=== PATIENT | male | born 1960 | race Asian ===

== ENCOUNTER 2024-01-17 15:20 | Inpatient (IN) | payer OTHER ==
[2024-01-17 15:41] VITALS: BMI 26.2
[2024-01-17] MEDS ORDERED: ATORVASTATIN CA 80 MG TABLET (FP) ONE ×2 (16:54→21:27)
[2024-01-17] MEDS ORDERED: ACETAMINOPHEN INJECTION 100 ML IVPB ONE ×2 (16:54→22:18)
[2024-01-17] MEDS: ACETAMINOPHEN 1000 MG/100 ML BAG IVPB ONE ×2 (17:16→22:25)
[2024-01-17] MEDS: ATORVASTATIN CA 80 MG TABLET (FP) PO ONE (17:17)
[2024-01-17] MEDS ORDERED: METOCLOPRAMIDE HCL INJECTION 10 MG/2 ML VIAL ONE (17:43)
[2024-01-17] MEDS: METOCLOPRAMIDE HCL INJECTION 10 MG/2 ML VIAL IVPUSH ONE (17:47)
[2024-01-17 18:03] LABS: BASO % 0.7 % (0-2.0); EOS % 1.6 % (0-4.5); HEMATOCRIT 37.4 % (35.4-49); HEMOGLOBIN 12.2 GM/dL (11.7-16.9); LYMPH % 26.8 % (8-40); MCH 27.1 pg (25.7-33.7); MCHC 32.6 g/dl (32.0-35.9); MEAN CELL VOLUME 83.1 fl (80-96); MEAN PLT VOLUME 9.4 fl (7.5-11.1); MONO % 9.4 % (3.8-10.2); NEUT % 61.5 % (42.8-82.8); PLATELET COUNT 172 10^3/uL (134-434); WHITE BLOOD COUNT 7.3 K/mm3 (4.0-10.0)
[2024-01-17 18:26] LABS: ACTIVATED PTT 29.5 SECONDS (25.2-36.5); INR 1.14 (0.83-1.09); PROTHROMBIN TIME (PATIENT) 13.1 SEC (9.7-13.0)
[2024-01-17 18:35] LABS: CHOLESTEROL 139 mg/dL (50-200)
[2024-01-17 18:36] LABS: LDL CHOLESTEROL (ONLY SJRH) 69 mg/dL (5-100)
[2024-01-17 18:38] LABS: HDL CHOLESTEROL 27 mg/dL (40-60)
[2024-01-17 18:43] LABS: BLOOD UREA NITROGEN 17.5 mg/dL (7-18); CALCIUM 9.2 mg/dL (8.5-10.1)
[2024-01-17 18:44] LABS: ALBUMIN 3.6 g/dl (3.4-5.0)
[2024-01-17 18:47] LABS: CREATININE 1.8 mg/dL (0.55-1.3)
[2024-01-17 18:48] LABS: BILIRUBIN,TOTAL 0.4 mg/dL (0.2-1)
[2024-01-17 18:49] LABS: TOT PROT 7.1 g/dl (6.4-8.2)
[2024-01-17] MEDS ORDERED: ACETAMINOPHEN 325 MG TABLET (FP) PO PRN (21:56)
[2024-01-17] MEDS ORDERED: MECLIZINE HCL 25 MG TABLET (FP) PO PRN (21:57)
[2024-01-17] MEDS ORDERED: ATORVASTATIN CA 80 MG TABLET (FP) PO SCH (22:00)
[2024-01-17] MEDS: ASPIRIN 81 MG CHEWABLE TABLETS PO SCH (22:16)
[2024-01-17] MEDS ORDERED: ASPIRIN 325 MG TABLET ONE (22:18)
[2024-01-17] MEDS: ASPIRIN 325 MG TABLET PO ONE (22:26)
[2024-01-18] MEDS ORDERED: NICOTINE POLACRILEX 4 MG GUM BUC PRN (06:52)
[2024-01-18] MEDS ORDERED: PANTOPRAZOLE 40 MG TABLET PO SCH ×3 (07:00→10:00)
[2024-01-18] MEDS ORDERED: PANTOPRAZOLE 40 MG TABLET PO ONE (07:25)
[2024-01-18] MEDS: PANTOPRAZOLE 40 MG TABLET PO SCH (07:26)
[2024-01-18 07:29] LABS: BASO % 0.7 % (0-2.0); EOS % 2.3 % (0-4.5); HEMOGLOBIN 11.8 GM/dL (11.7-16.9); LYMPH % 27.7 % (8-40); MCH 26.8 pg (25.7-33.7); MCHC 32.8 g/dl (32.0-35.9); MEAN CELL VOLUME 81.6 fl (80-96); MEAN PLT VOLUME 9.1 fl (7.5-11.1); MONO % 7.8 % (3.8-10.2); NEUT % 61.5 % (42.8-82.8); PLATELET COUNT 165 10^3/uL (134-434); RBC 4.41 M/mm3 (4.00-5.60); RDW 15.1 % (11.9-15.9); WHITE BLOOD COUNT 6.8 K/mm3 (4.0-10.0)
[2024-01-18 07:42] LABS: POTASSIUM 3.7 mmol/L (3.5-5.1)
[2024-01-18 07:44] LABS: ALBUMIN 3.4 g/dl (3.4-5.0); BLOOD UREA NITROGEN 16.6 mg/dL (7-18)
[2024-01-18 07:47] LABS: CREATININE 1.8 mg/dL (0.55-1.3); PHOSPHOROUS 3.7 mg/dL (2.5-4.9)
[2024-01-18 07:49] LABS: BILIRUBIN,TOTAL 0.5 mg/dL (0.2-1); TOT PROT 6.7 g/dl (6.4-8.2)
[2024-01-18] MEDS: INSULIN ASPART SLIDING SCALE (NOVOLOG) 1 VIAL SQ SCH (07:50)
[2024-01-18 08:57] VITALS: RESP 20
[2024-01-18] MEDS ORDERED: amLODIPine BESYLATE 10 MG TABLET (FP) ONE (10:55)
[2024-01-18] MEDS ORDERED: CLOPIDOGREL BISULFATE 75 MG TABLET (FP) ONE (10:55)
[2024-01-18] MEDS ORDERED: NICOTINE 21 MG/24 HOURS TOPICAL PATCH ONE (10:55)
[2024-01-18] MEDS ORDERED: VALSARTAN 80 MG TABLET ONE (10:55)
[2024-01-18] MEDS ORDERED: ENOXAPARIN NA (PORCINE) 40 MG/0.4 ML DISP.SYRIN SQ ONE (10:56)
[2024-01-18] MEDS: CLOPIDOGREL BISULFATE 75 MG TABLET (FP) PO SCH (11:03)
[2024-01-18] MEDS: amLODIPine BESYLATE 10 MG TABLET (FP) PO SCH (11:03)
[2024-01-18] MEDS: NICOTINE 21 MG/24 HOURS TOPICAL PATCH TD SCH (11:04)
[2024-01-18] MEDS: ENOXAPARIN NA (PORCINE) 40 MG/0.4 ML DISP.SYRIN SQ SCH (11:04)
[2024-01-18] MEDS: VALSARTAN 160 MG TABLET PO SCH (11:04)
[2024-01-18 13:30] VITALS: BP 134/96; PULSE 67; TEMP 97.3
[2024-01-18] MEDS ORDERED: ATORVASTATIN CA 80 MG TABLET (FP) PO SCH (22:00)
[2024-01-18] MEDS ORDERED: CLOPIDOGREL BISULFATE 75 MG TABLET (FP) PO ONE (22:32)
== END 2024-01-18 17:57 | disposition home or self-care (01) | DRG 45 ==
LOC: JER 15:20 → OBSVTOIN 18:03 → JERBED 18:03 → INTOOBSV 18:03
PROVIDERS: ADMIT Internal Medicine; ATTEND Internal Medicine
DX: I63.89 Other cerebral infarction (principal); E11.22 Type 2 diabetes mellitus with diabetic chronic kidney disease; N18.30 Chronic kidney disease, stage 3 unspecified; I12.9 Hypertensive chronic kidney disease with stage 1 through stage 4 chronic kidney disease, or unspecified chronic kidney disease; E78.5 Hyperlipidemia, unspecified; R42 Dizziness and giddiness
CPT/HCPCS: 36415; 70551-TC; 80053; 80061; 82962; 83036; 83735; 84100; 84443; 84484; 85025; 85610; 85730; 86850; 86900; 86901; 93005; 93010; 93306-TC; 93880-TC; 99285-25; J0131